=== PATIENT | male | born 1985 | race Caucasian/White ===

== ENCOUNTER → 2016-12-17 | Outpatient (CLI) | payer OTHER ==
[~2016-12-17] MED LIST: ATOR10TA PO; DICL75TA PO; IOHEXOL 300 MG/ML 50 ML VIAL. IT ONE; LIDOCAINE 1% Multi-Dose 20 ML VIAL. ID ONE; TEMA30CA PO
--- NOTE | 2016-12-17 12:13 | KCIC ---
Lumbar spine five views Indication: Low back pain with numbness to the left anterior thigh. Time of exam 9:24 a.m. Standing neutral as well as flexion and extension views as well as an AP view was performed. Standing neutral view does show mild anterolisthesis of L5 on S1. There is lucency in the region of the pars suggestive of a pars defect. There is also minimal retrolisthesis of L4 on L5. The degree of listhesis does not appear to be be appreciably changed during flexion or extension maneuvers. The vertebral body heights are maintained. No acute fracture seen. There is some mild disc space narrowing at L L4-5 level. Impression: Minimal retrolisthesis L4 on L5 with anterolisthesis L5 on S1. There is probable pars defects at L5-S1. No definite abnormal motion during flexion or extension maneuvers is identified. Electronically signed by: Michael Pagan MD (Dec 17, 2016 12:11:29)
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
== END | disposition home or self-care (01) ==
LOC: KCIC 08:54
PROVIDERS: ATTEND Neurological Surgery
DX: M54.5 Low back pain (principal); M48.06 Spinal stenosis, lumbar region; M43.16 Spondylolisthesis, lumbar region; M54.2 Cervicalgia
CPT/HCPCS: 72110; 72126; 72132; 72270; Q9967